=== PATIENT | male | born 1950 | race Caucasian/White ===

== ENCOUNTER 2017-03-01 22:02 | Emergency (ER) | payer OTHER, MEDICARE ==
[~2017-03-01] VITALS: Ht 182.9 cm; Wt 112.8 kg
[~2017-03-01 22:02] MED LIST: ACYC400T PO; ASPI325T PO; LOVA40TA PO; METO25TA3 PO; ROPI1TAB PO; ROPI2TAB PO
[2017-03-01 22:10] VITALS: BP 156/87; PULSE 67; RESP 16; TEMP 97.7; O2SAT 98
[2017-03-01] MEDS ORDERED: SODIUM CHLOR 0.9% 1000 ML INJ 1,000 ML IV ONE (22:30)
[2017-03-01] MEDS ORDERED: ONDANSETRON HCL 4 MG/2 ML VIAL IV PUSH ONE (22:30)
[2017-03-01] MEDS ORDERED: KETOROLAC TROMETHAMINE 30 MG/ML (IVP) VIAL IV PUSH ONE (22:30)
--- NOTE | 2017-03-01 22:33 | PD ---
HPI Chief Complaint: Flank/Kidney Pain Time Seen by Provider: 22:22 Travel History International Travel<30 days: No Contact w/Intl Traveler<30days: No Traveled to known affect area: No History of Present Illness HPI 66 years old male complains of right flank pain. Patient states that the pain started this evening. Patient states the pain severe pain sharp pain localized to the right flank area. Patient denies any pain radiation. Patient denies any fever chills. Patient states that he had nausea but no vomiting or diarrhea. Patient states that he has urinary frequency but no dysuria. Patient denies any history of kidney stone. Patient denies any injury. On a scale of 1-10 the pain is a 5. PFSH Past Medical History Cardiovascular Problems: Yes (A-FIB) Diminished Hearing: Yes (BILATERAL [place]) ?: Not Social History Alcohol Use: No Tobacco Use: No Substance Use: No Allergies-Medications (Allergen,Severity, Reaction): Coded Allergies: No Known Allergies (Verified , 03/01/17) Reported Meds & Prescriptions Reported Meds & Active Scripts Active Flomax (Tamsulosin HCl) 0.4 Mg Cap 0.4 Mg PO HS Zofran Odt (Ondansetron Odt) 4 Mg Tab 4 Mg SL Q6HR PRN [place] (Hydrocodone-Acetaminophen) 5-325 mg Tab 1 Tab PO Q6H PRN Lovastatin 40 Mg Tab 40 Mg PO DAILY Ropinirole 2 Mg Tab 2 Mg PO BID Reported Aspirin 325 Mg Tab 325 Mg PO DAILY Metoprolol Tartrate 25 Mg Tab 25 Mg PO BID Review of Systems General / Constitutional: No: Fever Eyes: No: Visual changes HENT: No: Headaches Cardiovascular: No: Chest Pain or Discomfort Respiratory: No: Shortness of Breath Gastrointestinal: Positive: Nausea, Abdominal Pain Genitourinary: No: Dysuria Musculoskeletal: No: Pain Skin: No Rash Neurologic: No: Weakness Psychiatric: No: Depression Endocrine: No: Polydipsia Hematologic/Lymphatic: No: Easy Bruising Physical Exam Narrative GENERAL: Well-nourished, well-developed patient. SKIN: Focused skin assessment warm/dry. HEAD: Normocephalic. EYES: No scleral icterus. No injection or drainage. NECK: Supple, trachea midline. No JVD or lymphadenopathy. CARDIOVASCULAR: Regular rate and rhythm without murmurs, gallops, or rubs. RESPIRATORY: Breath sounds equal bilaterally. No accessory muscle use. GASTROINTESTINAL: Abdomen soft, nondistended. Patient has mild tenderness on palpation right flank area. No rebound tenderness. No mass. Small reducible umbilical hernia. MUSCULOSKELETAL: No cyanosis, or edema. BACK: Nontender without obvious deformity. No CVA tenderness. Neurologic exam normal. Data Data Last Documented VS Vital Signs Date Time Temp Pulse Resp B/P Pulse Ox O2 Delivery O2 Flow Rate FiO2 03/01/17 22:10 97.7 67 16 156/87 98 Orders Basic Metabolic Panel (Bmp) (03/01/17 22:28) Urinalysis - C+S If Indicated (03/01/17 22:28) Ct Abd/Pel W/O Iv Contrast (03/01/17 22:28) Iv Access Insert/Monitor (03/01/17 22:28) Sodium Chlor 0.9% 1000 Ml Inj (Ns 1000 M (03/01/17 22:30) Ketorolac Inj (Toradol Inj) (03/01/17 22:30) Ondansetron Inj (Zofran Inj) (03/01/17 22:30) Labs Laboratory Tests Test 03/01/17 22:30 Urine Color YELLOW Urine Turbidity CLEAR Urine pH 5.5 Urine Specific [place] 1.026 Urine Protein NEG mg/dL Urine Glucose (UA) NEG mg/dL Urine Ketones NEG mg/dL Urine Occult Blood MOD Urine Nitrite NEG Urine Bilirubin NEG Urine Leukocyte Esterase NEG Urine RBC 4-9 /hpf Urine WBC 0-2 /hpf Urine Squamous Epithelial 0-5 /hpf Cells Urine Mucus FEW /lpf Microscopic Urinalysis Comment CULT NOT INDICATED Sodium Level 144 MEQ/L Potassium Level 4.1 MEQ/L Chloride Level 111 MEQ/L Carbon Dioxide Level 25.4 MEQ/L Anion Gap 8 MEQ/L Blood Urea Nitrogen 24 MG/DL Creatinine 1.50 MG/DL Estimat Glomerular Filtration 47 ML/MIN Rate Random Glucose 121 MG/DL Calcium Level 9.0 MG/DL [facility] Medical Decision Making Medical Screen Exam Complete: Yes Emergency Medical Condition: Yes Interpretation(s) Last Impressions Abdomen/Pelvis CT 03/01/172227 Signed Impressions: Service Date/Time: February 22:36 - CONCLUSION: 1. 4 mm distal right ureteral calculus with minimal obstructive uropathy. 2. Mild hydronephrosis on the left, etiology uncertain. A mild congenital ureteropelvic junction obstruction would be possible. Radiolucent stone and a urothelial lesion would also be in the differential. Nonemergent outpatient CT urogram suggested. Liam Pope MD 20 3:17 PM. BUN 24. Creatinine 1.5. Patient has history of renal insufficiency in the past. UA has a few RBC. Differential Diagnosis Differential diagnosis including musculoskeletal, nephrolithiasis, pyelonephritis, colitis. Narrative Course 66 years old male with right flank pain. Normal saline solution 1 L IV bolus. Toradol 30 mg IV. Zofran 4 mg IV. Diagnosis Primary Impression: Nephrolithiasis Additional Impression: Renal insufficiency Patient Instructions: General Instructions Additional Instructions: Take medications as directed. Follow-up with urologist. Return if intractable pain, fever, persistent vomiting. Strain urine. Med/Other Pt SpecificInfo: Prescription(s) given Scripts Tamsulosin (Flomax)0.4 Mg Cap0.4 Mg PO HS #14 CAP Ref 0 Prov:Koko Serrano MD 03/01/17 Ondansetron Odt (Zofran Odt)4 Mg Tab4 Mg SL Q6HR PRN (Nausea/Vomiting) #10 TAB Prov:Koko Serrano MD 03/01/17 Hydrocodone-Acetaminophen ([place])5-325 mg Tab1 Tab PO Q6H PRN (PAIN) #30 TAB Prov:Koko Serrano MD 03/01/17 Disposition: 01 DISCHARGE HOME Condition: Stable Koko Serrano MD March 01, 2017 22:32
[2017-03-01 22:50] LABS: BLOOD, URINE MOD (NEG); GLUCOSE,URINE NEG (NEG); KETONE, URINE NEG (NEG); NITRITE,URINE NEG (NEG); PH, URINE 5.5 (5.0-8.5)
[2017-03-01 22:55] LABS: POTASSIUM 4.1 MEQ/L (3.5-5.1)
[2017-03-01 22:56] LABS: URINE COLOR YELLOW (YELLW/STRAW)
[2017-03-01 22:57] LABS: MUCUS URINE FEW /lpf (OCC); SQUAMOUS EPITHELIAL CELL URINE 0-5 /hpf (0-5); WBC, URINE 0-2 /hpf (0-5)
[2017-03-01 22:58] LABS: BICARBONATE 25.4 MEQ/L (21.0-32.0); COMMENT (UR) CULT NOT INDICATED; CULTURE IF INDICATED CULT NOT INDICATED
--- NOTE | 2017-03-01 23:02 | RADHPO ---
EXAM DATE/TIME: 03/01/2017 22:36 [place] COMPARISON: No previous studies available for comparison. INDICATIONS : Right flank pain. Frequent urination. ORAL CONTRAST: No oral contrast ingested. RADIATION DOSE: 24.21 CTDIvol (mGy) MEDICAL HISTORY : None SURGICAL HISTORY : None. ENCOUNTER: Initial ACUITY: 1 day PAIN SCALE: 5/10 LOCATION: Right flank TECHNIQUE: Volumetric scanning of the abdomen and pelvis was performed. Using automated exposure control and ad justment of the mA and/or kV according to patient size, radiation dose was kept as low as reasonably achievable to obtain optimal diagnostic quality images. FINDINGS: There is a 4 mm stone distally of the right ureter just about 1 cm above the ureterovesical junction. No significant hydronephrosis or hydroureter. There is mild left hydronephrosis of uncertain etiology. No radiopaque stone demonstrated. The left u reter has normal caliber. Noncontrast appearance of the liver, spleen, pancreas and adrenal glands within normal limits. No obs truction or acute inflammatory changes are seen of the gastrointestinal tract. Normal appendix. Small hiatal hernia. There is a small fat containing umbilical hernia. Trace atelectasis of the visualized right lung base. No acute osseous abnormality demonstrated. CONCLUSION: 1. 4 mm distal right ureteral calculus with minimal obstructive uropathy. 2. Mild hydronephrosis on the left, etiology uncertain. A mild congenital ureteropelvic junction obst ruction would be possible. Radiolucent stone and a urothelial lesion would also be in the differentia l. Nonemergent outpatient CT urogram suggested. Liam Pope MD on March 01, 2017 at 22:55 Board Certified Radiologist. This report was verified electronically.
[2017-03-01] MEDS ORDERED: ZOFR4TAB3 SL (23:24)
[2017-03-01] MEDS ORDERED: TAMS5CAP PO (23:24)
[2017-03-01] MEDS ORDERED: NORC5TAB PO (23:24)
[2017-03-01] MEDS ORDERED: TETANUS/DIPHTHERIA TOXOID ADULT 0.5 ML VIAL IM ONE (23:45)
[2017-03-01 23:59] VITALS: RESP 17
[2017-03-02] VITALS: BP 128/80
== END 2017-03-01 23:59 | disposition home or self-care (01) ==
LOC: PHED 22:02
DX: N20.0 Calculus of kidney (principal); N28.9 Disorder of kidney and ureter, unspecified; I48.91 Unspecified atrial fibrillation; R11.0 Nausea; Z79.899 Other long term (current) drug therapy; Z23 Encounter for immunization
CPT/HCPCS: 74176; 80048; 81001; 90471; 90714; 96361; 96374; 99285; J1885; J7030

== ENCOUNTER → 2017-07-16 | Outpatient (CLI) | payer OTHER ==
[~2017-07-16] MED LIST changes: -ACYC400T PO; +CEPH-460 PO; +HYDR-3288 PO; -ROPI1TAB PO
[2017-07-16 09:17] LABS: BLOOD GAS BASE EXCESS -2.8 mmol/L (-2-2); BLOOD GAS CARBOXYHEMOGLOBIN 1.3 % (0-4); BLOOD GAS HCO3 22 mmol/L (22-26); BLOOD GAS METHEMOGLOBIN 1.3 % (0-2); BLOOD GAS O2 HGB SATURATION 92 % (90-100); BLOOD GAS OXYGEN CONTENT 18.6 Vol % (12.0-20.0); BLOOD GAS PCO2 38 mmHg (38-42); BLOOD GAS PO2 76 mmHg (61-120); BLOOD GAS TOTAL HGB 14.5 G/DL (12.0-16.0); CRITICAL VALUE NO; DRAW SITE RT RADIAL; FIO2 21 %; NUMBER OF ARTERIAL PUNCTURES 1; STAT NO; TEMP CORR TO 98.6; ULNAR PULSE PRESENT
--- NOTE | 2017-07-17 09:04 | RSPPFT ---
DATE OF PROCEDURE: 07/16/17 COMMENTS: Spirometry with FVC of 4.5 predicted 4.6, FEV1 of 3.5 predicted 3.6, FEV1/FVC ratio 76% predicted 78%. Lung volumes are basically within the predicted range with a minimal increase in RV. DLCO is 75% of predicted. IMPRESSION: On the basis of the above, patient has flow values, lung volumes and DLCO essentially within the predicted range.
== END ==
LOC: HRSP 08:51
PROVIDERS: ATTEND Internal Medicine Pulmonary Disease
DX: G47.30 Sleep apnea, unspecified (principal)
CPT/HCPCS: 36600; 82805; 94060; 94620; 94726; 94729

== ENCOUNTER → 2017-08-02 | Day surgery (SDC) | payer OTHER ==
[~2017-08-02] VITALS: Ht 182.9 cm; Wt 114.0 kg
[~2017-08-02] MED LIST changes: +ASPI-183 PO; -ASPI325T PO; +BUPIVACAINE HCL PF 0.5% 30 ML VIAL ONE; +CHLORHEXIDINE GLUCONATE 2 % 1 PACK (2 CLOTHS) TOPICAL PRN; +FAMOTIDINE 20 MG/2 ML VIAL ONE; +INSULIN HUMAN REGULAR 1,000 UNITS/10 ML VIAL SQ PRN; +LACTATED RINGER'S 1000 ML IV PRN; +LIDOCAINE HCL 2% 50 ML VIAL ONE; +METOPROLOL TARTRATE 25 MG TAB PO PRN; +MIDAZOLAM HCL 2 MG/2 ML VIAL ONE; +NEOMYCIN/POLYMYXIN 1 ML G.U. IRRIGANT ONE; +ONDANSETRON HCL 4 MG/2 ML VIAL IV PUSH ONE; +ONDANSETRON HCL 4 MG/2 ML VIAL ONE; +POVIDONE IODINE 5% (ANTISEPSIS KIT) 4 APPLICATIONS EACH NARE PRN; +PROPOFOL 200 MG/20 ML AMP IV ONE; +SODIUM CHLORID 0.9% 500 ML IV PRN
[2017-08-02] MEDS: ceFAZolin 2 GM PREMIX 50 ML IV SCH ×2 (08:05→09:04)
[2017-08-02 10:15] VITALS: BP 130/67; PULSE 67; RESP 14; TEMP 97.8; O2SAT 96
--- NOTE | 2017-08-02 21:06 | MP ---
cc: ROBIN LARA III, M.D. DATE OF SURGERY 08/02/2017 PREOPERATIVE DIAGNOSIS Left hand Dupuytren's contracture. PROCEDURE 1. Left third finger palmar fasciectomy. 2. Left ring finger palmar fasciectomy. SURGEON Robin Lara III, MD PROCEDURE IN DETAIL The patient was brought to the operating room, placed supine on the operating table. After the correct site and side of surgery were verified by members of each team in the room multiple times including the patient and myself and after adequate preop markings and preoperative written consent was verified by everyone, after adequate preoperative time-out was performed to everyone's satisfaction, after adequate general anesthesia had been achieved the left upper extremity was prepped and draped traditional sterile surgical fashion. After adequate preoperative time-out was performed to everyone's satisfaction, the left upper extremity prepped and draped in typical sterile surgical fashion. A 50/50 mixture of 2% plain lidocaine, 0.5% plain Marcaine was infiltrated in the skin, subcutaneous tissue into the palm and the area proximal to the planned incisions. The limb was exsanguinated with an Roni wrap, highly placed well-padded axillary tourniquet. It was inflated to 200 mmHg for a total of 43 minutes. Longitudinally oriented incisions with angles at every flexion crease were made and carried down through the skin and subcutaneous tissue at this time. The thickened palmar fascia cord was then identified proximally and dissected distally into the finger. Neurovascular bundles on either side were identified and protected. The A1 pulleys were involved so these were incised as well. The cords were passed off the field as specimens. The fingers were completely extended and easy to hyperextend and all the palmar skin was soft and pliable. The neurovascular bundles were all still intact. Thorough irrigation was performed with saline. The axillary tourniquet was released and pressure held for 10 minutes. The capillary refill was less than 2 seconds in all fingers immediately upon release of the tourniquet. Thorough irrigation was performed. The skin edges were then reapproximated using interrupted 4-0 nylon sutures with no right angles over any creases in the skin. A 1/4 inch Monroe drain split in half longitudinally, were left to come out from deep in the wound. The hand and arm were thoroughly cleansed and dried. Hemostasis was present. Capillary refill is less than 2 seconds all fingertips. Betadine, Adaptic dressing was applied atop of all the wounds and the drains and a bulky well-padded, well molded short-arm volar immobilizing ___, leaving only the thumb free, was made in the usual fashion. The patient was awakened from anesthesia and transported to the Post Anesthesia Care Unit awake, in stable condition at the end of the case. Sponge, needle, instrument counts were correct at the end of the case as reported by the nurses in the room. MD SOULEYMANE Merino III/REJI /10:35 AM /8:39 PM
--- NOTE | 2017-08-02 23:43 | EKG ---
Date Performed: 08/02/2017 Time Performed: 06:55:36 PTAGE: 67 years EKG: Sinus rhythm NORMAL ECG PREVIOUS TRACING : 08/29/2015 22.14 Compared to prior tracing no significant change DOCTOR: Cisco Maciel Interpretating Date/Time 08/02/2017 23:42:44
== END | disposition home or self-care (01) ==
LOC: PHSDC 06:14
PROVIDERS: ATTEND Orthopaedic Surgery Hand Surgery
DX: M72.0 Palmar fascial fibromatosis [Dupuytren] (principal); E78.5 Hyperlipidemia, unspecified; H91.90 Unspecified hearing loss, unspecified ear; G25.81 Restless legs syndrome; M18.0 Bilateral primary osteoarthritis of first carpometacarpal joints; E66.9 Obesity, unspecified; Z68.34 Body mass index [BMI] 34.0-34.9, adult; Z87.891 Personal history of nicotine dependence; I10 Essential (primary) hypertension
CPT/HCPCS: 01810; 26123; 26125; 88304; 93005; J0690; J2250; J2405; J3010; J7120; 88305